=== PATIENT | female | born 1970 | race Caucasian/White ===

== ENCOUNTER → 2016-06-17 | Outpatient (CLI) | payer BC ==
--- NOTE | 2016-06-17 16:26 | MAMMOGRAPHY REPORT ---
BILATERAL DIGITAL SCREENING MAMMOGRAM TOMOSYNTHESIS WITH CAD: 06/17/2016 CLINICAL HISTORY: Routine screening. Patient has no complaints. TECHNIQUE: Breast tomosynthesis in addition to standard 2D mammography was performed. Current study was also evaluated with a Computer Aided Detection (CAD) system. COMPARISON: Comparison is made to exams dated: 01/09/2015 mammogram, 02/28/2011 mammogram, and 01/31/20 13 mammogram - [facility]. BREAST COMPOSITION: The tissue of both breasts is extremely dense, which lowers the sensitivity of mammography. FINDINGS: No suspicious masses, calcifications, or areas of architectural distortion are noted in e ither breast. There has been no significant interval change compared to prior exams. IMPRESSION: ACR BI-RADS CATEGORY 1: NEGATIVE There is no mammographic evidence of malignancy. A 1 year screening mammogram is recommended. The p atient will receive written notification of the results. Approximately 10% of breast cancers are not detected with mammography. A negative mammographic repor t should not delay biopsy if a clinically suggestive mass is present. Maria C Calderon M.D. ah/:06/17/2016 15:38:50 Imaging Manager: Karissa JARRETT,R, M, [facility] letter sent: Normal 1/2 BI-RADS Code: ACR BI-RADS Category 1: Negative
== END | disposition home or self-care (01) ==
LOC: C.MAMM 14:34
PROVIDERS: ATTEND Internal Medicine
DX: Z12.31 Encounter for screening mammogram for malignant neoplasm of breast (principal)

== ENCOUNTER → 2016-07-14 | Outpatient (CLI) | payer BC ==
[2016-07-14 14:54] LABS: URINE APPEARANCE CLEAR (CLEAR); URINE BILIRUBIN NEG (NEG); URINE COLOR DK YELLOW; URINE EPITHELIAL CELL AUTO 20-30 /lpf (0-5); URINE NITRITE POS (NEG); URINE SPECIFIC GRAVITY 1.002 (1.000-1.030); UROBILINOGEN NEG (NEG); ZZUR CULT IF INDIC CLEAN CATCH YES
[2016-07-14 14:55] LABS: MANUAL MICROSCOPIC REQUIRED? NO; REVIEW REQ? NO
== END | disposition home or self-care (01) ==
LOC: C.LAB1850 13:03
PROVIDERS: ATTEND Internal Medicine
DX: R39.9 Unspecified symptoms and signs involving the genitourinary system (principal)

== ENCOUNTER → 2017-07-12 | Outpatient (CLI) | payer BC ==
--- NOTE | 2017-07-13 15:08 | MAMMOGRAPHY REPORT ---
BILATERAL DIGITAL SCREENING MAMMOGRAM TOMOSYNTHESIS WITH CAD: 07/12/2017 CLINICAL HISTORY: Routine screening. Patient has no complaints. TECHNIQUE: Bilateral breast tomosynthesis in addition to standard 2D mammography was performed. Curr ent study was also evaluated with a Computer Aided Detection (CAD) system. COMPARISON: Comparison is made to exams dated: 06/17/2016 mammogram, 01/09/2015 mammogram, 01/30/2013 ma mmogram, and 02/28/2011 mammogram - [facility]. BREAST COMPOSITION: The tissue of both breasts is extremely dense, which lowers the sensitivity of m ammography. FINDINGS: There are possible clustered microcalcifications in the upper outer posterior left breast, for which additional spot magnification views are recommended. A 6 mm nodular asymmetry in the slig htly superior posterior right breast on the MLO view warrant additional spot compression tomosynthesi s views, exaggerated lateral CC view and possible ultrasound. Another possible grouping of microcalc ifications in the superior right breast on the MLO view needs additional spot magnification views. No other suspicious mass, architectural distortion or cluster of microcalcifications is seen bilkata lj. IMPRESSION: ACR BI-RADS CATEGORY 0: INCOMPLETE EVALUATION: NEED ADDITIONAL IMAGING EVALUATION The bilateral microcalcifications and nodular asymmetry in the right breast on the MLO view need jordon tional imaging evaluation. The patient will be called to schedule an appointment. Approximately 10% of breast cancers are not detected with mammography. A negative mammographic report should not delay biopsy if a clinically suggestive mass is present. Laura Pride M.D. ay/:07/12/2017 15:42:44 Tufter Operator: Maria Victoria JARRETT(Tyler)(Leobardo), [facility] letter sent: Addl Imaging 0 BI-RADS Code: ACR BI-RADS Category 0: Incomplete Evaluation: Need Additional Imaging Evaluation
== END | disposition home or self-care (01) ==
LOC: C.MAMM 13:22
PROVIDERS: ATTEND Internal Medicine
DX: Z12.31 Encounter for screening mammogram for malignant neoplasm of breast (principal); R92.0 Mammographic microcalcification found on diagnostic imaging of breast; N64.89 Other specified disorders of breast

== ENCOUNTER → 2017-07-26 | Outpatient (CLI) | payer BC ==
--- NOTE | 2017-07-26 15:57 | MAMMOGRAPHY REPORT ---
BILATERAL DIGITAL DIAGNOSTIC MAMMOGRAM TOMOSYNTHESIS AND TARGETED RIGHT ULTRASOUND: 07/26/2017 CLINICAL HISTORY: Callback from screening mammogram for right breast asymmetry and bilateral calcific ations. TECHNIQUE: Breast tomosynthesis in addition to standard 2D mammography was performed. Bilateral spo t magnification CC and ML views and spot compression right MLO tomosynthesis images were obtained. COMPARISON: Comparison is made to exams dated: 07/12/2017 mammogram, 06/17/2016 mammogram, 01/09/2015 m ammogram, 01/30/2013 mammogram, and 02/28/2011 mammogram - [facility]. BREAST COMPOSITION: The tissue of both breasts is extremely dense, which lowers the sensitivity of m ammography. FINDINGS: Spot compression views demonstrate a persistent 6 mm nodular asymmetry seen within the righ t superior breast, felt to be located laterally based on the tomosynthesis localizer bar. Spot magni fication views of the left breast demonstrate a 10 mm group of amorphous calcifications in the left u pper outer quadrant at approximately 2:00, with other loosely grouped similar-appearing calcification s seen within the left lateral breast at approximately 2 to 3:00. The calcifications are indeterminat e and stereotactic biopsy of the focal grouping is recommended for further evaluation. Spot magnific ation views of the right breast demonstrate regional faint amorphous benign-appearing calcifications within the right upper outer quadrant, without a focal suspicious cluster of calcifications noted. Targeted ultrasound was performed of the right upper outer quadrant in the region of the mammographic asymmetry. In the right breast at 10:00, approximately 7 cm from the nipple, there is an oval circu mscribed anechoic mass with a thin internal septation, measuring 6 x 3 x 5 mm. This corresponds with the mammographic asymmetry and is consistent with a benign cyst. IMPRESSION: ACR BI-RADS CATEGORY 4: SUSPICIOUS, TARGETED ULTRASOUND ACR BI-RADS CATEGORY 4: SUSPICIO US 1. Focal 10 mm group of amorphous calcifications within the left 2:00 breast, as well as other simil ar appearing calcifications loosely grouped within the left 2 to 3:00 breast. Although the calcifica tions may represent fibrocystic changes, findings are indeterminate and stereotactic biopsy is recomm ended for further evaluation. 2. Regional benign-appearing amorphous calcifications within the right upper outer quadrant, without suspicious cluster of calcifications noted. 3. Benign 6 mm cyst in the right breast at 10:00 on ultrasound, which corresponds with a mammographi c asymmetry. A phone call was made to the physician's office to confirm faxed results were received. The patient has been verbally notified of the results. She tentatively scheduled the biopsy before leaving the [facility]. Approximately 10% of breast cancers are not detected with mammography. A negative mammographic report should not delay biopsy if a clinically suggestive mass is present. Maria C Calderon M.D. ah/:07/26/2017 10:49:13 Senior Cyber Intelligence Analyst: Keren JARRETT(Tyler)(M), [facility] letter sent: Abnormal 4/5 BI-RADS Code: ACR BI-RADS Category 4: Suspicious Ultrasound BI-RADS: ACR BI-RADS Category 4: Suspici ous
== END | disposition home or self-care (01) ==
LOC: C.MAMM 09:06
PROVIDERS: ATTEND Internal Medicine
DX: R92.1 Mammographic calcification found on diagnostic imaging of breast (principal); N60.01 Solitary cyst of right breast

== ENCOUNTER → 2017-08-03 | Outpatient (CLI) | payer BC ==
--- NOTE | 2017-08-03 13:18 | Discharge Instructions ---
Discharge Instructions Procedure Procedure Date: Aug 03, 2017. Reason for visit: Left Calcs. Discharge Discharge Date: Aug 03, 2017. Discharge Diagnosis: status post breast biopsy Instructions Activity Recommendations: Additional Limitations (see below) Return to School/Work: no limitations Recommended Home Diet: No Limitations Provider Instructions: ACTIVITY RECOMMENDATIONS: * No lifting, pushing, pulling or exercising the affected side for three days. RETURN TO SCHOOL/WORK: * You may return to work/school after the procedure, but do not perform any strenuous activities for 24 to 48 hours. MEDICATIONS: * Tylenol (two 325 mg) every four to six hours if needed for mild pain (if not allergic to Tylenol). DIET: * Resume previous diet. SPECIAL CARE INSTRUCTIONS: * Keep biopsy site dry for 24 hours. May shower after 24 hours, but do not soak (bathe) incision. * May remove Tegaderm (plastic patch) tomorrow AFTER showering. * Leave the steri-strips on for one week. Allow the steri-strips to fall off by themselves. If not off after one week, you may remove them. You may place a Bandaid crosswise over the strips, if desired. * Apply ice 10 minutes on and 10 minutes off as needed. * Wear a bra at bedtime to sleep more comfortably for 2-3 days. * Your referring physician should have the results after approximately 5 to 7 business days. * Call for unusual bleeding, fever, drainage, etc or if you have any questions call during normal business hours or after hours call Dr Calderon, . FOLLOW UP VISIT: Follow-up with Referring Physician as scheduled. Jayme Giang Recommendations: Call your doctor if: * Temperature above 101 degrees * Pain not relieved by pain medicine ordered * There is increased drainage or redness from any incision * You have any unanswered questions or concerns. Your Doctors Instructions noted above were prepared by provider Maria C Calderon. Patient Signature Section: Patient Instructions Signature Page Jesenia Doe Patient (or Guardian) Signature/Date: I have read and understand the instructions given to me by my caregivers. Caregiver/RN/Doctor Signature/Date: The above-named patient and/or guardian has received patient instructions on this date. + Original Patient Signature Page (only) stays with chart. Please make copy for patient.
--- NOTE | 2017-08-03 15:04 | MAMMOGRAPHY REPORT ---
UNILATERAL LEFT DIGITAL DIAGNOSTIC MAMMOGRAM: 08/03/2017 CLINICAL HISTORY: Status post left breast stereotactic biopsy. TECHNIQUE: Postprocedural left CC and ML views were obtained. COMPARISON: Comparison is made to exams dated: 07/26/2017 ultrasound, 07/26/2017 mammogram, 07/12/2017 mammogram, 06/17/2016 mammogram, 01/09/2015 mammogram, and 01/30/2013 mammogram - [facility]. BREAST COMPOSITION: The tissue of the left breast is extremely dense, which lowers the sensitivity o f mammography. FINDINGS: A new biopsy marker clip is seen at the site of the biopsied calcifications in the left upp er outer quadrant. No significant postbiopsy hematoma is seen. IMPRESSION: POST PROCEDURE IMAGING FOR MARKER PLACEMENT New biopsy marker clip status post left breast stereotactic biopsy. Pathology results are pending. Approximately 10% of breast cancers are not detected with mammography. A negative mammographic report should not delay biopsy if a clinically suggestive mass is present. Maria C Calderon M.D. ah/:08/03/2017 13:29:30 Product Development Manager: Waldemar JARRETT(R)(M), [facility] BI-RADS Code: Post Procedure Imaging For Marker Placement
--- NOTE | 2017-08-03 15:04 | MAMMOGRAPHY REPORT ---
STEREOTACTIC GUIDED BIOPSY LEFT BREAST: 08/03/2017 CLINICAL HISTORY: Indeterminate calcifications in the left upper outer quadrant. PATIENT CONSENT: The procedure, risks, benefits, and alternatives of stereotactic biopsy with clip pl acement were discussed with the patient, and verbal and written consent was obtained. A timeout was performed immediately prior to the procedure. PROCEDURE DESCRIPTION: With stereotactic guidance, aseptic technique, and lidocaine as a local anesth etic (1% lidocaine to anesthetize the skin and 1% lidocaine with epinephrine to anesthetize the deepe r tissues), the calcifications of concern in the left upper outer quadrant were sampled multiple time s with a 9-gauge vacuum-assisted biopsy needle ([employer]). The path of approach was lateral. The specimen radiograph demonstrates calcifications to be present in the samples. A metallic marker cli p was placed at the biopsy site. This was confirmed on postprocedure mammograms. Direct pressure wa s applied at the biopsy site and hemostasis was readily achieved. The patient tolerated the procedur e without complication. She was given wound care instructions. COMPARISON: Comparison is made to exams dated: 07/26/2017 ultrasound, 07/26/2017 mammogram, 07/12/2017 mammogram, 06/17/2016 mammogram, and 01/09/2015 mammogram - [facility]. IMPRESSION: STEREOTACTIC GUIDED BIOPSY Stereotactic biopsy of indeterminate calcifications in the left upper outer quadrant, with clip place ment. The patient will receive pathology results from her referring provider. Maria C Calderon M.D. ah/:08/03/2017 13:19:26 Attending Technologist: Keren Moreira RT(R)(M), [facility] Mail Room Clerk: Waldemar Pope RT(R)(M), [facility]
== END | disposition home or self-care (01) ==
LOC: C.MAMM 12:42
PROVIDERS: ATTEND Internal Medicine
DX: R92.0 Mammographic microcalcification found on diagnostic imaging of breast (principal)

== ENCOUNTER 2025-04-09 08:51 | Inpatient (IN) ==
--- NOTE | 2025-04-09 09:19 | Emergency Department Note ---
Impression & Plan Lower back pain, L4-L5 disc bulge ED Provider Note Diagnosis: Low back pain, L5 disc protrusion Disposition: Admission CHIEF COMPLAINT: Back pain HPI: Patient is a 54-year-old female presenting with complaint of lower back pain that radiates down the left leg. Patient's had issues with this since September of this year and is progressively getting worse. Patient has been using chiropractors massage therapist orthopedics and nothing has been helping. Patient states over the past couple days time she cannot bear weight on her left leg and hops around to get around at home. Patient states she feels numbness and pain down the lateral aspect of her left leg. Patient denies any bowel or bladder symptoms. Patient states she is scheduled for an MRI next week as well as pain management next month. No reported new trauma since last CT scan in our system [address] of lumbar spine showed bulging disc at multiple levels. PAST MEDICAL HISTORY: See Below PAST SURGICAL HISTORY: See Below SOCIAL HISTORY: See Below HOME MEDICATIONS: See Below ALLERGIES: See Below VITALS: See Below PHYSICAL EXAMINATION: GENERAL: Well appearing, well nourished, NAD, non-toxic. EYE EXAM: Normal conjunctiva. OROPHARYNX: Moist mucus membranes. Grossly normal dentition. NECK: Supple, LUNGS: Clear to auscultation. Normal chest wall mechanics. HEART: NSR ABDOMEN: Abdomen soft, non-tender, normo-active bowel sounds, no masses, no rebound or guarding BACK: Tenderness lumbar spine SKIN: No rashes and no bruising. UPPER EXTREMITIES: Upper extremities are grossly normal LOWER EXTREMITIES: 2+ posterior tibialis pulses bilaterally, sensation present bilateral lower extremities, muscle strength at ankle joint intact., NEURO EXAM: A&O x3,, normal speech, moves all 4 extremities PSYCH: Cooperative MEDICAL DECISION MAKING: History obtained from: Patient ER Course: Patient is a 54-year-old female presenting with worsening lower back pain that radiates down the left leg. Patient states that this started within incident that occurred in September of this previous year. Patient has been using multiple modalities as an outpatient to try to help with the symptoms as much as physical therapy massage therapy chiropractor and steroid courses as well as different medications. Patient states over the past 2 to 3 days her symptoms have worsened where she has to hop to walk along at home and she has significant pain whenever she first wakes up down the lateral aspect of her left leg. Patient denies any urinary retention or incontinence of urine or stool. Patient on my exam today has 2+ dorsal pedis pulse and intact muscle strength of the left ankle joint as well as sensation. Patient does have numbness down the leg and significant pain. Patient had an outpatient CT scan performed at approximately 1 month ago which showed disc protrusions of the lumbar spine. Due to the patient's significant symptoms MRI was ordered from the emergency room. MRI shows significant L5 disc protrusion. Patient required multiple doses of narcotic pain medication during ER course. On 1 dose of the pain medication the patient required nasal cannula oxygen support because it lowered her oxygen saturation briefly. Patient's case was discussed with on-call orthopedic spine surgeon who reviewed her MRIs and agrees to admit her to the hospital under his service for further treatment and evaluation. Labs (independently interpreted) are significant for: No electrolyte abnormalities Medications given: Dilaudid x 3 Consultants: Dr. Restrepo of orthopedic spine, discussed patient's case and he reviewed the patient's MRI today. Will admit the patient to his service for further treatment and evaluation. Triage Nursing notes reviewed and agree them. Vital Signs: reviewed and remarkable for: no significant abnormalities Past Med/Surg History Problem List (Updated 04/09/25 @ 16:19 by Everardo Maradiaga DO) L4-L5 disc bulge (Acute) Lower back pain (Acute) Lumbar disc herniation with radiculopathy Lumbosacral radiculopathy at L4 Lumbosacral radiculopathy at L3 Low back pain Contact dermatitis Pruritic erythematous rash Pruritic condition Postmenopausal Non-smoker (Acute) Hyperhidrosis (Acute) History of cervical dysplasia (Acute) Anxiety disorder (Chronic) Allergic rhinitis (Chronic) Abnormal finding on mammography (Acute) Health care maintenance Left knee pain Gait difficulty Impaired weight bearing Knee instability Acute meniscal tear of left knee Skin abrasion Encounter for pre-operative examination Encounter for screening for lipid disorder Osteoarthritis (Chronic) Vitamin D deficiency (Chronic) Abnormal iron saturation Medical History UTI (urinary tract infection) Ankle pain Muscle strain of chest wall Surgical History H/O knee surgery H/O hand surgery H/O oral surgery Hx of LASIK History of gynecologic surgery H/O breast biopsy Family History Father age 48 after surgery for tumor on caroid- suffered stroke and . Grandfather (Maternal) Stroke Other Benign tumor of glomus jugulare Denies family history of Pancreatic cancer Ovarian cancer Prostate cancer Breast cancer Colorectal cancer Uterine cancer Social History Smoking Status: Never smoker Second Hand Exposure: No; Do You Dip or Chew Tobacco: No; Hx Alcohol Use: Yes Alcohol type: wine Hx Substance Use: No Preferred Language: Sami marital status: Current Living Situation: Spouse current occupational status: employed Feels Safe at Home: Yes Safety Concerns: Feels Safe At This Time Childhood Exposure to Second-Hand Smoke: Yes Dental Care, Regularly: Yes Physical Activity Frequency: 5-6 Times per Week Seatbelt Use: always Sunscreen Use: Yes Assistive Devices: Cane, Glasses and Hospital Bed Allergies Allergies Allergy/AdvReac Type Severity Reaction Status Date / Time povidone-iodine AdvReac Mild Hives Verified 03/31/25 15:03 [From Betadine] soap [From Betadine] AdvReac Mild Hives Verified 03/31/25 15:03 Home Meds Home Medications Medication Instructions Recorded Confirmed fexofenadine 180 mg tablet 180 mg PO DAILY 07/02/19 03/31/25 (Orquidea Allergy) multivitamin 1 cap PO DAILY 07/02/19 03/31/25 Previous Rx's Medication Instructions Recorded cholecalciferol (vitamin D3) 125 125 mcg PO DAILY #30 caps 04/09/20 mcg (5,000 unit) capsule mecobalamin (vitamin B12) 1,000 2,000 mcg (2 x 1,000 mcg) PO DAILY 04/09/20 mcg chewable tablet #30 tabs metaxalone 800 mg tablet 800 mg PO TID PRN muscle pain #30 03/25/25 tabs diazepam 5 mg tablet 5 mg PO TID PRN muscle spasm #30 03/31/25 tabs hydrocodone 7.5 mg-acetaminophen 1 tab PO Q6H PRN pain #30 tabs 03/31/25 325 mg tablet prednisone 20 mg tablet See Rx Instructions .Route 03/31/25 .COMPLEX #20 tabs Results & Data (ED) Vital Signs Vital Signs - 24 hr 04/09/25 08:54 04/09/25 09:46 04/09/25 11:44 Temperature 36.6 C Temperature Source Temporal Artery Scan Pulse Rate 104 H 99 H Pulse Rate [Apical] 111 H Pulse Rhythm [Apical] Pulse Strength [Apical] Respiratory Rate 18 22 Respiratory Effort / Characteristics Non-Labored Spontaneous Non-Labored Respiratory Depth Normal Normal Respiratory Pattern Regular Blood Pressure 164/96 H Blood Pressure [Left Arm] 145/90 H Blood Pressure Mean 118 Blood Pressure Mean [Left Arm] 108 Pulse Oximetry 97 98 Oxygen Delivery Method Room Air Room Air Oxygen Flow Rate Sepsis Recent Fever Within 48 Hours No Sepsis New/Unexplained Change in Mental Status N/A Sepsis Action Taken by Nursing No Action Required Oxygen Flow Rate - Titration Pulse Oximetry Post Tiitration 04/09/25 11:58 04/09/25 12:00 04/09/25 14:00 Temperature Temperature Source Pulse Rate Pulse Rate [Apical] 101 H 110 H Pulse Rhythm [Apical] Regular Pulse Strength [Apical] Normal Respiratory Rate 22 18 Respiratory Effort / Characteristics Non-Labored Spontaneous Respiratory Depth Normal Respiratory Pattern Blood Pressure Blood Pressure [Left Arm] 141/89 H 156/105 H Blood Pressure Mean Blood Pressure Mean [Left Arm] 106 122 Pulse Oximetry 83 L 98 98 Oxygen Delivery Method Room Air Nasal Cannula Room Air Oxygen Flow Rate 0 3 Sepsis Recent Fever Within 48 Hours Sepsis New/Unexplained Change in Mental Status Sepsis Action Taken by Nursing Oxygen Flow Rate - Titration 3 Pulse Oximetry Post Tiitration 98 Laboratory Data 04/09/25 09:25 04/09/25 09:25 Lab Results 04/09/25 Range/Units 09: WBC 7.73 (4.8-10.8) K/ul RBC 4.51 (4.20-5.40) M/uL Hgb 15.0 (12.0-16.0) g/dL Hct 42.1 (37.0-47.0) % MCV 93.3 (80.0-100.0) fL MCH 33.3 (25.0-34.0) pg MCHC 35.6 (32.0-36.0) g/dL RDW Std Deviation 43.7 (36.4-46.3) fL RDW Coeff of Amy 12.7 (11.5-14.5) % Plt Count 442 H (130-400) K/uL MPV 9.3 L (9.4-12.4) fL Immature Gran % (Auto) 0.8 % Neut % (Auto) 48.1 % Lymph % (Auto) 36.6 % [place] % (Auto) 12.9 % Eos % (Auto) 0.8 % Baso % (Auto) 0.8 % Neut # (Auto) 3.72 (1.40-6.50) K/uL Lymph # (Auto) 2.83 (1.20-3.40) K/uL [place] # (Auto) 1.00 H (0.11-0.59) K/uL Eos # (Auto) 0.06 (0.00-0.50) K/uL Baso # (Auto) 0.06 (0.00-0.20) K/uL Immature Gran # (Auto) 0.06 (0.01-0.20) K/uL Sodium 140 (136-145) mmol/L Potassium 3.6 (3.5-5.1) mmol/L Chloride 104 (98-107) mmol/L Carbon Dioxide 29 (21-32) mmol/L Anion Gap 7 (3-11) BUN 12 (6-23) mg/dl Creatinine 0.74 (0.6-1.2) mg/dl Est Cr Clr Drug Dosing Not Reportable eGFR 96.09 BUN/Creatinine Ratio 16.2 (10-20) Glucose 90 (70-99(Fasting)) mg/dl Calcium 9.9 (8.6-10.3) mg/dl Administered Medications Discontinued Medications Hydromorphone HCl (Hydromorphone Inj 1 Mg/Ml Syringe) 1 mg IV NOW STA Stop: 04/09/25 09:14 Last Admin: 04/09/25 09:24 Dose: 1 mg Documented By: TDM Hydromorphone HCl (Hydromorphone Inj 1 Mg/Ml Syringe) 1 mg IV NOW STA Stop: 04/09/25 11:49 Last Admin: 04/09/25 11:53 Dose: 1 mg Documented By: TDM Hydromorphone HCl (Hydromorphone Inj 0.5 Mg/0.5 Ml Syr) 0.5 mg IV NOW STA Stop: 04/09/25 13:50 Last Admin: 04/09/25 14:07 Dose: 0.5 mg Documented By: MR Imaging Data Radiologist's Impression: Lumbar Spine MRI 04/09/25 09:13 MR lumbar spine wo con CLINICAL HISTORY: 54 years-old Female with lumbar pain w/ numbness in left leg, trouble walki. Subacute low back pain for several months with left lower extremity radicular symptoms COMPARISON: CT lumbar spine 03/17/2025 TECHNIQUE: Multiplanar, multi sequence MRI of the lumbar spine was performed without intravenous contrast. FINDINGS: 26 degrees levoscoliosis measured from L1-L5. The vertebral body heights are normal. There is no T1 fracture line or marrow replacement process. Mild Modic- type 1 degeneration at L4-L5. The conus terminates at T12-L1. The visualized spinal cord and cauda equina are normal. There is no paraspinal edema, mass, or prevertebral fluid collection. Distended urinary bladder. T12-L1: No central canal or neural foraminal stenosis. L1-L2: No central canal or neural foraminal stenosis. L2-L3: Mild intervertebral disc space narrowing. Spondylotic spurring with small circumferential disc bulge, eccentric to the left far lateral distribution. Mild facet arthrosis with trace facet effusions. No central canal or neural foraminal stenosis. L3-L4: Mild intervertebral disc space narrowing with degenerative related 3 mm anterolisthesis. Spondylitic spurring with small circumferential annular disc bulge and posterior disc uncovering. Moderate facet arthrosis with facet effusions. Moderate central canal stenosis, AP dimension of the thecal sac measuring 6 mm. The neural foramen are patent. L4-L5: Moderate facet arthrosis. Mild to moderate intervertebral disc space narrowing with spondylitic spurring and a circumferential annular disc bulging. Degenerative related 4 mm anterolisthesis. Posterior annular fissure with large central disc protrusion measuring 1.7 x 0.8 cm, image 21 series 5. This causes severe central canal stenosis with AP dimension of the thecal sac measuring 2 mm. Severe narrowing of the lateral recesses. Minimal bilateral neural foraminal stenosis. L5-S1: Mild facet arthrosis. No central canal or neural foraminal stenosis. IMPRESSION: 1. Large central disc protrusion at L4-L5 causes severe central canal stenosis with severe narrowing of the lateral recesses. 2. No acute fracture, subluxation or significant bone marrow edema. 3. Additional discogenic degeneration with spondylotic spurring and facet arthrosis as above with resultant central canal and neural foraminal narrowing. ACT 112: Negative or not required by law. The above report was generated using voice recognition software. It may contain grammatical, syntax or spelling errors. Electronically signed by: William Acosta M.D. 04/09/2025 12:25 PM Discharge Plan Visit Data Chief Complaint: Hip Pain Stated Complaint: L HIP AND LEG PAIN ED Provider: Everardo Maradiaga Discharge Problem: Lower back pain, L4-L5 disc bulge Patient Disposition: Admitted As Inpatient Condition: Fair Discharge Instructions Interventions: ED Discharge Assessment Last Done: 04/09/25 15:01
[2025-04-09] MEDS: HYDROmorphone INJ 1 MG/ML SYRINGE IV STA ×2 (09:24→11:53)
[2025-04-09 09:40] LABS: Hematocrit (blood only) 42.1 % (37.0-47.0); Hemoglobin 15.0 g/dL (12.0-16.0); Immature Granulocytes # (auto) 0.06 K/uL (0.01-0.20); Immature Granulocytes % (auto) 0.8 %; Mean Corpuscular Hemoglobin 33.3 pg (25.0-34.0); Mean Corpuscular Volume 93.3 fL (80.0-100.0); Platelet Count 442 K/uL (130-400); RDW Standard Deviation 43.7 fL (36.4-46.3); Red Blood Count 4.51 M/uL (4.20-5.40); White Blood Count 7.73 K/ul (4.8-10.8)
[2025-04-09 09:55] LABS: Anion Gap 7 (3-11); Blood Urea Nitrogen 12 mg/dl (6-23); Calcium 9.9 mg/dl (8.6-10.3); Carbon Dioxide 29 mmol/L (21-32); Chloride 104 mmol/L (98-107); Glucose 90 mg/dl (70-99(Fasting)); Potassium 3.6 mmol/L (3.5-5.1); Sodium 140 mmol/L (136-145)
--- NOTE | 2025-04-09 12:28 | Magnetic Resonance Report ---
MR lumbar spine wo con CLINICAL HISTORY: 54 years-old Female with lumbar pain w/ numbness in left leg, trouble walki. Subac [place] low back pain for several months with left lower extremity radicular symptoms COMPARISON: CT lumbar spine 03/17/2025 TECHNIQUE: Multiplanar, multi sequence MRI of the lumbar spine was performed without intravenous cont rast. FINDINGS: 26 degrees levoscoliosis measured from L1-L5. The vertebral body heights are normal. There is no T1 fracture line or marrow replacement process. Mild Modic-type 1 degeneration at L4-L5. The conus termi nates at T12-L1. The visualized spinal cord and cauda equina are normal. There is no paraspinal janine ma, mass, or prevertebral fluid collection. Distended urinary bladder. T12-L1: No central canal or neural foraminal stenosis. L1-L2: No central canal or neural foraminal stenosis. L2-L3: Mild intervertebral disc space narrowing. Spondylotic spurring with small circumferential dis c bulge, eccentric to the left far lateral distribution. Mild facet arthrosis with trace facet effusi ons. No central canal or neural foraminal stenosis. L3-L4: Mild intervertebral disc space narrowing with degenerative related 3 mm anterolisthesis. Spon dylitic spurring with small circumferential annular disc bulge and posterior disc uncovering. Moderat e facet arthrosis with facet effusions. Moderate central canal stenosis, AP dimension of the thecal s ac measuring 6 mm. The neural foramen are patent. L4-L5: Moderate facet arthrosis. Mild to moderate intervertebral disc space narrowing with spondylit ic spurring and a circumferential annular disc bulging. Degenerative related 4 mm anterolisthesis. Po sterior annular fissure with large central disc protrusion measuring 1.7 x 0.8 cm, image 21 series 5. This causes severe central canal stenosis with AP dimension of the thecal sac measuring 2 mm. Severe narrowing of the lateral recesses. Minimal bilateral neural foraminal stenosis. L5-S1: Mild facet arthrosis. No central canal or neural foraminal stenosis. IMPRESSION: 1. Large central disc protrusion at L4-L5 causes severe central canal stenosis with severe narrowing of the lateral recesses. 2. No acute fracture, subluxation or significant bone marrow edema. 3. Additional discogenic degeneration with spondylotic spurring and facet arthrosis as above with res ultant central canal and neural foraminal narrowing. ACT 112: Negative or not required by law. The above report was generated using voice recognition software. It may contain grammatical, syntax o r spelling errors. Electronically signed by: William Acosta M.D. 04/09/2025 12:25 PM
[2025-04-09] MEDS: HYDROmorphone INJ 0.5 MG/0.5 ML SYR IV STA (14:07)
--- NOTE | 2025-04-09 15:10 | History & Physical Report ---
Date of Service April 09, 2025 Assessment & Plan (1) Lumbar disc herniation with radiculopathy: Plan: Patient has both an MRI and a CAT scan available for review. MRI from today demonstrates massive central disc herniation L4-L5 with severe spinal stenosis a nd neural encroachment. CAT scan confirms evidence of marked spondylosis at the L4-L5 level with a listhesis to the left. There is marked facet hypertrophy and osteoarthritis. At this point we had a lengthy discussion regarding her clinical presentation urinary changes and neurologic deficit. She would like proceed with surgery. They would require a lumbar decompression and fusion L4- L5. This would allow me to safely and adequately decompress the canal address the facet hypertrophy and listhesis. Risk benefits pros cons and alternatives were all in detail. Risk include but not limited to anesthesia blindness stroke paralysis nerve damage blood loss requiring transfusion infection requiring reoperation benefits to be marked improvement of her radiculopathy pulmonary function and ambulation. This time patient will be admitted for pain control made n.p.o. after midnight and plan for surgery first thing in the a.m. History of Present Illness Chief Complaint: Severe back and leg pain with inability ambulate Primary Care Provider: Elizabeth Franklin MD This is a 54-year-old female that presents emergency room with a marked decline in status over the past 2 weeks. She has been unable to ambulate. She has severe left greater than right leg pain. She is noting difficulty with urination and intermittent perineal numbness. She had been seen in our office several weeks ago had initiated a course of physical therapy and completed several sessions. This included healthcare social worker. Unfortunately she continued to decline and now presents for the second time to the emergency room with pain at the lumbosacral junction predominantly left buttock posterolateral thigh into the foot. She notes breakaway weakness prickly affecting left lower extremity. Allergies Allergy/AdvReac Type Severity Reaction Status Date / Time povidone-iodine AdvReac Mild Hives Verified 03/31/25 15:03 [From Betadine] soap [From Betadine] AdvReac Mild Hives Verified 03/31/25 15:03 Home Medications Medication Instructions Recorded Confirmed Type fexofenadine 180 mg tablet 180 mg PO DAILY 07/02/19 03/31/25 History (Orquidea Allergy) multivitamin 1 cap PO DAILY 07/02/19 03/31/25 History cholecalciferol (vitamin D3) 125 125 mcg PO DAILY #30 caps 04/09/20 03/31/25 Rx mcg (5,000 unit) capsule mecobalamin (vitamin B12) 1,000 2,000 mcg (2 x 1,000 mcg) PO DAILY 04/09/20 03/31/25 Rx mcg chewable tablet #30 tabs metaxalone 800 mg tablet 800 mg PO TID PRN muscle pain #30 03/25/25 03/31/25 Rx tabs diazepam 5 mg tablet 5 mg PO TID PRN muscle spasm #30 03/31/25 03/31/25 Rx tabs hydrocodone 7.5 mg-acetaminophen 1 tab PO Q6H PRN pain #30 tabs 03/31/25 03/31/25 Rx 325 mg tablet prednisone 20 mg tablet See Rx Instructions .Route 03/31/25 03/31/25 Rx .COMPLEX #20 tabs Past Med/Surg History Problem List (Updated 04/09/25 @ 15:07 by Margarito Restrepo DO) Lumbar disc herniation with radiculopathy Lumbosacral radiculopathy at L4 Lumbosacral radiculopathy at L3 Low back pain Contact dermatitis Pruritic erythematous rash Pruritic condition Postmenopausal Non-smoker (Acute) Hyperhidrosis (Acute) History of cervical dysplasia (Acute) Anxiety disorder (Chronic) Allergic rhinitis (Chronic) Abnormal finding on mammography (Acute) Health care maintenance Left knee pain Gait difficulty Impaired weight bearing Knee instability Acute meniscal tear of left knee Skin abrasion Encounter for pre-operative examination Encounter for screening for lipid disorder Osteoarthritis (Chronic) Vitamin D deficiency (Chronic) Abnormal iron saturation Medical History UTI (urinary tract infection) Ankle pain Muscle strain of chest wall Surgical History H/O knee surgery H/O hand surgery H/O oral surgery Hx of LASIK History of gynecologic surgery H/O breast biopsy Family History Father age 48 after surgery for tumor on caroid- suffered stroke and . Grandfather (Maternal) Stroke Other Benign tumor of glomus jugulare Denies family history of Pancreatic cancer Ovarian cancer Prostate cancer Breast cancer Colorectal cancer Uterine cancer Social History Smoking Status: Never smoker Second Hand Exposure: No; Do You Dip or Chew Tobacco: No; Hx Alcohol Use: Yes (at dinner) Alcohol type: wine Hx Substance Use: No Preferred Language: Spanish marital status: Current Living Situation: Family current occupational status: employed Feels Safe at Home: Yes Childhood Exposure to Second-Hand Smoke: Yes Dental Care, Regularly: Yes Physical Activity Frequency: 5-6 Times per Week Seatbelt Use: always Sunscreen Use: Yes Physical Exam Physical Exam: On exam patient is in obvious severe distress. She can only hold herself in a position. She exhibits no abnormal skin markings lumbar spine. She has severe tension signs with straight leg raising. There is breakaway weakness to the left quadricep and left dorsiflexion. Extensor houses longus plantarflexion appears to be a 5/5. There is sensory deficits on the left but on the right. Deep and reflexes absent. Results & Data Results & Data Vital Signs (Past 12 Hours) Vital Signs Temp Pulse Pulse Resp BP BP Pulse Ox 04/09/25 14:00 110 H 18 156/105 H 98 04/09/25 12:00 101 H 22 141/89 H 98 04/09/25 11:58 83 L 04/09/25 11:44 111 H 22 145/90 H 98 04/09/25 09:46 99 H 04/09/25 08:54 36.6 C 104 H 18 164/96 H 97 O2 Del Method O2 Flow Rate 04/09/25 14:00 Room Air 04/09/25 12:00 Nasal Cannula 3 04/09/25 11:58 Room Air 0 04/09/25 11:44 Room Air 04/09/25 09:46 04/09/25 08:54 Room Air Code Status & VTE Plan VTE Prophylaxis Plan VTE Prophylaxis will be ordered: Yes
[2025-04-09] MEDS ORDERED: ACETAMINOPHEN 1,000 MG/100 ML VIAL IV PRN (15:57)
[2025-04-09] MEDS ORDERED: NALOXONE HCL 0.4 MG/1 ML VIAL/CARP IV PRN (15:57)
[2025-04-09] MEDS ORDERED: PROMETHAZINE 12.5 MG/50.5 ML BAG IV PRN (15:57)
[2025-04-09] MEDS ORDERED: ONDANSETRON 4 MG OD TAB PO PRN (15:57)
[2025-04-09] MEDS ORDERED: METOCLOPRAMIDE HCL INJ 5 MG/ML 2 ML VIAL IV PRN (15:57)
[2025-04-09] MEDS ORDERED: LORazepam Inj 0.5 MG in SYRINGE 0.25 ML IV PRN (15:57)
[2025-04-09] MEDS ORDERED: ONDANSETRON INJ 2 MG/ML 2 ML VIAL IV PRN (15:57)
[2025-04-09] MEDS: HYDROmorphone INJ 1 MG/ML SYRINGE IV PRN (17:12)
[2025-04-09] MEDS: LACTATED RINGER'S 1,000 ML IV SCH (17:13)
[2025-04-09] MEDS: LORazepam 0.5 MG TAB PO PRN (21:00)
--- NOTE | 2025-04-10 06:55 | Anesthesiology Consultation ---
Date of Service April 10, 2025 Assessment & Plan (1) Encounter for pre-operative examination: Chart Review Chart Review: Acceptable Risk for Surgery and Patient NOT seen in Pre Admission Testing Consults Requested none History Surgery Operation Date: 04/10/25 07:45 Proposed Procedures p L4-L5 Decompression and Fusion - Margarito Restrepo DO Height/Weight Height: 5 ft 8 in Weight: 64.4 kg Allergies Allergy/AdvReac Type Severity Reaction Status Date / Time povidone-iodine AdvReac Mild Hives Verified 03/31/25 15:03 [From Betadine] soap [From Betadine] AdvReac Mild Hives Verified 03/31/25 15:03 Medications Home Medications Medication Instructions Recorded Confirmed Last Taken fexofenadine 180 mg tablet 180 mg PO DAILY 07/02/19 03/31/25 Unknown (Orquidea Allergy) multivitamin 1 cap PO DAILY 07/02/19 03/31/25 Unknown cholecalciferol (vitamin D3) 125 125 mcg PO DAILY #30 caps 04/09/20 03/31/25 Unknown mcg (5,000 unit) capsule mecobalamin (vitamin B12) 1,000 2,000 mcg (2 x 1,000 mcg) PO DAILY 04/09/20 03/31/25 Unknown mcg chewable tablet #30 tabs metaxalone 800 mg tablet 800 mg PO TID PRN muscle pain #30 03/25/25 03/31/25 Unknown tabs diazepam 5 mg tablet 5 mg PO TID PRN muscle spasm #30 03/31/25 03/31/25 Unknown tabs hydrocodone 7.5 mg-acetaminophen 1 tab PO Q6H PRN pain #30 tabs 03/31/25 03/31/25 Unknown 325 mg tablet prednisone 20 mg tablet See Rx Instructions .Route 03/31/25 03/31/25 Unknown .COMPLEX #20 tabs Active Medications Generic Name Dose Route Start Last Admin Trade Name Freq PRN Reason Stop Dose Admin Hydromorphone HCl 1 mg 04/09/25 15:57 04/10/25 05:45 Hydromorphone Inj 1 Mg/Ml Syringe IV 04/23/25 15:56 1 mg Q3H PRN Administration severe pain (scale 7-10) Lactated Ringer's 1,000 mls @ 75 mls/hr 04/09/25 15:57 04/10/25 05:46 Lr IV 04/10/25 08:00 75 mls/hr .[id number] COSTA Administration Lorazepam 0.5 mg 04/09/25 15:57 04/09/25 21:00 Lorazepam 0.5 Mg Tab PO 05/09/25 15:56 0.5 mg Q8H PRN Administration sedation/anxiety Past Medical History Medical History UTI (urinary tract infection) Ankle pain Muscle strain of chest wall Past Family History Family History Father age 48 after surgery for tumor on caroid- suffered stroke and . Grandfather (Maternal) Stroke Other Benign tumor of glomus jugulare Denies family history of Pancreatic cancer Ovarian cancer Prostate cancer Breast cancer Colorectal cancer Uterine cancer Past Surgical History Surgical History H/O knee surgery H/O hand surgery bilateral thumbs. H/O oral surgery tooth extraction Hx of LASIK bilateral History of gynecologic surgery cervical conization by cold knife age 20 [place] H/O breast biopsy Social History Smoking Status: Never smoker Do You Dip or Chew Tobacco: No Hx Alcohol Use: Yes Alcohol type: wine alcohol intake frequency: a few times a month Hx Substance Use: No Physical Exam Vital Signs Last Vital Signs Temp 97.9 F 04/10/25 06:40 Pulse 95 H 04/10/25 06:40 Resp 18 04/10/25 06:40 BP 165/113 H 04/10/25 06:40 Pulse Ox 97 04/10/25 06:40 O2 Del Method Room Air 04/10/25 06:40 O2 Flow Rate 3 04/09/25 12:00 Testing Laboratory Results 04/09/25 09:25 04/09/25 09:25
[2025-04-10] MEDS ORDERED: ONDANSETRON INJ 2 MG/ML 2 ML VIAL ONE ×2 (06:59→09:11)
[2025-04-10] MEDS ORDERED: PROPOFOL IV EMULSION 10 MG/ML 20 ML VIAL IV ONE (06:59)
[2025-04-10] MEDS ORDERED: DEXAMETHASONE SOD INJ 4 MG/ML VIAL ONE (06:59)
[2025-04-10] MEDS ORDERED: MIDAZOLAM HCL 1 MG/ML 2ML VIAL ONE (06:59)
[2025-04-10] MEDS ORDERED: LIDOCAINE 2% 2 ML VIAL/AMP(20MG/ML) INFIL ONE (06:59)
[2025-04-10] MEDS ORDERED: LARYING-O-JET KIT (LTA) ONE (07:00)
[2025-04-10] MEDS ORDERED: HYDROmorphone INJ 2 MG/ML SYR/VIAL ONE (07:00)
[2025-04-10] MEDS ORDERED: ROCURONIUM BROMIDE 10 MG/ML 5 ML VIAL IV ONE ×2 (07:00→08:12)
[2025-04-10] MEDS ORDERED: ONDANSETRON INJ 2 MG/ML 2 ML VIAL IV PRN ×2 (07:37→10:51)
[2025-04-10] MEDS ORDERED: ATROPINE SULFATE 0.1 MG/ML 10ML SYR IV PRN (07:37)
--- NOTE | 2025-04-10 07:45 | History & Physical Bridge Note ---
Date of Service April 10, 2025 History & Physical Bridge Note I have examined the patient, reviewed the History & Physical and in the interval since the performance of the History & Physical I have noted the following changes of clinical significance: no changes noted Patient has continued issues with urinary control, severe back and leg pain and inability to ambulate. In order to prevent permanent functional deficits recommending emergent decompression fusion L4-L5.
[2025-04-10 07:47] LABS: Pregnancy Test, Serum Negative (Negative)
[2025-04-10] MEDS: BUPIVACAINE/EPINEPHRINE 0.25% 1:200,000 30 ML VIAL ONE (08:19)
[2025-04-10] MEDS: ceFAZolin 330 MG/ML 1 GM VIAL ONE (08:19)
[2025-04-10] MEDS ORDERED: SUGAMMADEX SODIUM 200 MG/2 ML VIAL IV ONE (08:19)
[2025-04-10] MEDS: FLOSEAL HEMOSTATIC MATRIX 10ML TOP ONE (09:15)
--- NOTE | 2025-04-10 09:31 | Operative Report ---
Post Operative Report Pre & Post Diagnosis Operation Date: 04/10/25 07:45 Pre-Op Diagnosis: #1 cauda equina syndrome #2 disc Herniation with Radiculopathy #3 lumbar spinal stenosis Post-Op Diagnosis: Same I identified the patient and participated in the time-out.: Yes Procedure Operation Date: 04/10/25 07:45 Actual Procedures #1 lumbar decompression with bilateral facetectomies and foraminotomies L3-L4 L4-5 #2 posterior spinal fusion L4-5. #3 placed posterior instrumentation L4-L5 #4 interbody fusion L4-5 and #5 placement of Spira 11 x 26 mm x 2 at L4-5 by #6 placement of Proteus combined with Koros bone graft in the posterior lateral gutters and os design and interbody space. #7 application of versa wrap of the exposed dura. Surgeon Margarito Restrepo, Harness Brusher Shakila Gusman Estimated Blood Loss 50 Findings Consistent with Post-Op Diagnosis Specimens None Indications This is a 54-year-old female who presents to the emergency room yesterday afternoon with severe back and leg pain and changes in urinary function. This been progressive over several days the point of coming to the emergency room. She is subsequently admitted and is here for urgent decompression. Description of Procedure Patient was met with identified and pharmacy obtained. Patient was then taken to the operative suite underwent patient placed in a prone position on Alexey table atop the Maverick frame. All bony promises well-padded eyes inspected to ensure no external pressure placed upon them. This point the lumbar spine was prepped and draped in normal sterile fashion. Sharp dissection with the assistance of Bovie cautery from down to and exposing the lamina transverse processes of L4-L5. From caudal and cephalad fashion complete laminectomy of L4 was performed including bilateral medial facetectomies and foraminotomies to address all bony and neural encroachment. This did include partial laminectomy of L3 with bilateral medial facetectomies to address all subarticular stenosis. I then mobilized the nerve roots medially and addressed massive amounts of disc material that migrated into the canal. After this complete pedicle screws were then placed in L4-L5 bilaterally with assistance of fluoroscopy purposes shannon placed. I then by way of a transforaminal approach on the left performed a complete discectomy of L 4 L5. Endplates guided to subcortical bleeding bone and 11 x 26 mm Spira cage tapped in position. Then proceeded to the right transforaminal region at L4-5. Again discectomy performed. Endplates plated to subcortical bleeding bone. A second 11 x 26 mm Spira cage tapped into position. Please note all cages were packed with os design bone graft. The rods were then compressed locked into final position bilaterally. The transverse processes of L4-L5 burred to subcortical bleeding bone. Proteus combined with Koros bone graft was placed in the posterior gutters. Versa wrap placed over the exposed dura. 15 round ANIBAL drain inserted. The incision was then closed with 1 Vicryl in the fascia 2-0 Vicryl subcutaneously and 4 Monocryl for final s kin closure. Steri-Strips sterile dressing placed. Patient waken taken to PACU stable condition. Please note Shakila Gusman was present for the entire procedure and failed patient positioning complex portion of the surgery and final skin closure. I attest to the content of the Intraoperative Record and any orders documented therein. Any exceptions are noted below.
[2025-04-10] MEDS ORDERED: HYDROmorphone INJ 2 MG/ML SYR/VIAL IV PRN (10:09)
--- NOTE | 2025-04-10 10:29 | Anesthesiology Progress Note ---
Date of Service April 10, 2025 Anesthesia Post Procedure Vital Signs Vital Signs: Temp Pulse Pulse Resp BP Pulse Ox O2 Del Method 04/10/25 10:20 91 H 12 152/97 H 100 Nasal Cannula 04/10/25 10:10 104 H 12 161/100 H 96 Room Air 04/10/25 10:00 106 H 20 156/104 H 100 Room Air 04/10/25 09:50 102 H 12 157/109 H 98 Room Air 04/10/25 09:40 97.2 F L 105 H 14 154/109 H 100 Room Air 04/10/25 07:21 98.2 F 94 H 20 162/104 H 95 Room Air 04/10/25 06:40 97.9 F 95 H 18 165/113 H 97 Room Air 04/09/25 23:19 98.2 F 78 16 133/76 97 Room Air 04/09/25 16:24 Room Air 04/09/25 15:47 98.1 F 90 16 172/92 H 97 Room Air 04/09/25 14:00 110 H 18 156/105 H 98 Room Air 04/09/25 12:00 101 H 22 141/89 H 98 Nasal Cannula 04/09/25 11:58 83 L Room Air 04/09/25 11:44 111 H 22 145/90 H 98 Room Air O2 Flow Rate 04/10/25 10:20 2 04/10/25 10:10 04/10/25 10:00 04/10/25 09:50 04/10/25 09:40 04/10/25 07:21 04/10/25 06:40 04/09/25 23:19 04/09/25 16:24 04/09/25 15:47 04/09/25 14:00 04/09/25 12:00 3 04/09/25 11:58 0 04/09/25 11:44 Pain Intensity Left Leg: Pain Intensity: 8 Back: Pain Intensity: 7 Transfer of Care Handoff Completed per policy Notes Mental Status: alert / awake / arousable and participated in evaluation Patient Amnestic to Procedure: Yes Nausea / Vomiting: adequately controlled Pain: adequately controlled Airway Patency, RR, SpO2: stable & adequate BP & HR: stable & adequate Hydration State: stable & adequate Anesthetic Complications: no major complications apparent and Pt Satisfied with anesthetic care
[2025-04-10] MEDS ORDERED: FAMOTIDINE 20 MG TAB PO PRN (10:51)
[2025-04-10] MEDS ORDERED: ALUMINUM/MAGNESIUM SUSP 30 ML UDC PO PRN (10:51)
[2025-04-10] MEDS ORDERED: ACETAMINOPHEN 500 MG TAB PO PRN (10:51)
[2025-04-10] MEDS ORDERED: diphenhydrAMINE Capsule 25 MG CAP PO PRN (10:51)
[2025-04-10] MEDS ORDERED: ONDANSETRON 4 MG OD TAB PO PRN (10:51)
[2025-04-10] MEDS ORDERED: LORazepam 0.5 MG TAB PO PRN (10:51)
[2025-04-10] MEDS ORDERED: PROMETHAZINE 12.5 MG/50.5 ML BAG IV PRN (10:51)
[2025-04-10] MEDS ORDERED: DO NOT ADMINISTER FLU VACCINE PRN (10:51)
[2025-04-10] MEDS ORDERED: LORazepam Inj 0.5 MG in SYRINGE 0.25 ML IV PRN (10:51)
[2025-04-10] MEDS ORDERED: NALOXONE HCL 0.4 MG/1 ML VIAL/CARP IV PRN (10:51)
[2025-04-10] MEDS ORDERED: DO NOT ADMINISTER PNEUMOCOCCAL VACCINE PRN (10:51)
[2025-04-10] MEDS ORDERED: METOCLOPRAMIDE HCL INJ 5 MG/ML 2 ML VIAL IV PRN (10:51)
[2025-04-10] MEDS ORDERED: MAGNESIUM HYDROXIDE SUSP 30 ML UDC PO PRN (10:51)
[2025-04-10] MEDS ORDERED: SOD PHOSPHATE/SOD BIPHOSPHATE ENEMA 132 ML BTL PR PRN (10:51)
[2025-04-10] MEDS ORDERED: ACETAMINOPHEN 1,000 MG/100 ML VIAL IV PRN (10:51)
--- NOTE | 2025-04-10 11:26 | Fluoroscopy Report ---
[place] lumbar spine 2-3V CLINICAL HISTORY: L4-L5 DECOMPRESSION COMPARISON STUDY: None FLUOROSCOPY TIME: 17 seconds FLUOROSCOPY IMAGES: 2 EXPOSURE DOSE: 16 mGy FINDINGS: Fluoroscopy was provided for lower lumbar fusion. IMPRESSION: Intraoperative fluoroscopy. ACT 112: Negative or not required by law. Electronically signed by: Vic Kirby M.D. 04/10/2025 11:25 AM
[2025-04-10] MEDS: KETOROLAC 30 MG/ML VIAL IV PRN (14:41)
[2025-04-10] MEDS: ACETAMINOPHEN 500 MG TAB PO PRN (17:29)
[2025-04-10] MEDS: SODIUM CHLORIDE 0.9% 1,000 ML IV SCH (19:19)
[2025-04-10] MEDS: DOCUSATE SODIUM/SENNA 50/8.6MG TAB PO SCH (21:36)
[2025-04-11] MEDS: POLYETHYLENE (MIRALAX) 17 GM PACK PO SCH (05:33)
[2025-04-11 07:34] LABS: Anion Gap 6.0 (3-11); Blood Urea Nitrogen 12.0 mg/dl (6-23); Calcium 8.7 mg/dl (8.6-10.3); Carbon Dioxide 28.0 mmol/L (21-32); Chloride 105.0 mmol/L (98-107); Creatinine Clr Calc Pharmacy 82.1 ml/min; Glucose 96.0 mg/dl (70-99(Fasting)); Potassium 3.2 mmol/L (3.5-5.1); Sodium 139.0 mmol/L (136-145)
[2025-04-11 07:58] LABS: Hematocrit (blood only) 34.9 % (37.0-47.0); Hemoglobin 12.0 g/dL (12.0-16.0); Immature Granulocytes # (auto) 0.05 K/uL (0.01-0.20); Immature Granulocytes % (auto) 0.5 %; Mean Corpuscular Hemoglobin 33.5 pg (25.0-34.0); Mean Corpuscular Volume 97.5 fL (80.0-100.0); Platelet Count 311 K/uL (130-400); RDW Standard Deviation 45.7 fL (36.4-46.3); Red Blood Count 3.58 M/uL (4.20-5.40); White Blood Count 10.05 K/ul (4.8-10.8)
[2025-04-11] MEDS: dexAMETHasone 6 MG in SYRINGE 0 ML IV SCH (08:09)
--- NOTE | 2025-04-11 10:10 | Orthopedic Progress Note ---
Date of Service April 11, 2025 Assessment & Plan (1) Lumbar disc herniation with radiculopathy: Plan: At this time continue physical therapy monitor ANIBAL operatively discharge home in the next few days. Admission and Anticipated Discharge Date Admission Date: April 09, 2025 Subjective Patient's back pain is controlled leg symptoms markedly improved Physical Exam Physical Exam: Patient is now in bed. She is comfortable. Constricted testing. Results & Data Vital Signs (Past 12 Hours) Vital Signs Temp Pulse Resp BP Pulse Ox O2 Del Method 04/11/25 07:44 37.2 C 94 H 18 137/85 95 Room Air 04/11/25 03:26 36.5 C 90 18 127/83 96 Room Air 04/10/25 22:33 36.5 C 90 18 120/78 94 Room Air
[2025-04-12 07:55] VITALS: BP 144/92; PULSE 86; RESP 18; TEMP 98.2; O2SAT 97
[2025-04-12] MEDS: HYDROmorphone INJ 0.5 MG/0.5 ML SYR IV PRN (08:12)
--- NOTE | 2025-04-12 09:36 | Discharge Summary ---
Date of Service April 12, 2025 Admission HPI Per Admitting Provider This is a 54-year-old female that presents emergency room with a marked decline in status over the past 2 weeks. She has been unable to ambulate. She has severe left greater than right leg pain. She is noting difficulty with urination and intermittent perineal numbness. She had been seen in our office several weeks ago had initiated a course of physical therapy and completed several sessions. This included nursing care partner. Unfortunately she continued to decline and now presents for the second time to the emergency room with pain at the lumbosacral junction predominantly left buttock posterolateral thigh into the foot. She notes breakaway weakness prickly affecting left lower extremity. Principal Diagnosis Lumbar disc herniation with radiculopathy Discharge Data Allergies Allergy/AdvReac Type Severity Reaction Status Date / Time povidone-iodine AdvReac Mild Hives Verified 04/10/25 07:20 [From Betadine] soap [From Betadine] AdvReac Mild Hives Verified 04/10/25 07:20 Consultations 04/09/25 14:26 ED Decision to Admit Stat Procedures Performed Operation Date: 04/10/25 07:45 Actual Procedures p L4-L5 Decompression and Fusion(Not Applicable) - Margarito Restrepo DO Ordered Studies 04/09/25 09:13 MRI Lumbar Spine [MR lumbar spine wo con] Stat 04/10/25 [place] lumbar spine 2-3V Routine Hospital Course (1) Lumbar disc herniation with radiculopathy: Patient was admitted and underwent emergent decompression fusion L4-L5. She is struggling with leg weakness and urinary retention. She tolerated the procedure well and postoperatively was up and ambulating with physical therapy. ANIBAL drain decreased appropriately. Pain controlled. Strength improved. Subsidy discharged home. Discharge orders and instructions from the chart for further review. Total Time Total Time Spent Total Time Spent (In Minutes): 20 minutes Discharge Plan Discharge Items Patient Disposition: Home - Self-Care Reason For Visit: LUMBAR DISK HERNIATION Discharge Diagnosis: Lumbar disc herniation with cauda equina syndrome Condition on Discharge: Fair Activity: As commented below Non-emergency contact: Primary Care Provider Call non-emergency contact if: you have any medication questions Follow-up/Referrals: Elizabeth Franklin MD [Primary Care Provider] - Diet: Regular Addtl Attending Provider Instructions: ACTIVITY RECOMMENDATIONS: SELF CARE INSTRUCTIONS AFTER THORACIC/LUMBAR FUSIONS 1. You may walk to your tolerance. It is good exercise for your legs and back. Expect some back and intermittent leg aches and pains. 2. You may perform "counter-top" level activities (make a sandwich, rama with a project, etc.). 3. No bending or lifting of more than 10 pounds or back twisting of any nature (roll like a log when turning in bed). 4. You may ride in a car for 20-30 minutes at a time. No driving until after your first visit with your doctor. 5. Frequent changes of position and restricting sitting to 30 minutes at a time will help limit the amount of back spasms and stiffness you may experience. 6. You may discontinue the use of ambulatory aids (cane, crutches, etc.) once your strength and confidence allow. 7. 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 Do not take a tub bath, sit in a hot tub or go into a swimming pool until after your first recheck in the office. 8. You may resume previous diet. SPECIAL CARE INSTRUCTIONS: VERY IMPORTANT TO READ AND REVIEW A. Your surgical incision has been closed with a cosmetic suture under the skin that will dissolve in about 6 weeks. In 14 days, you can use a pair of clean scissors and cut the suture that is left outside of the skin at the ends of your incision. 1. The small skin tapes can be removed 7 days after surgery if they have not fallen off by that point. 2. You may keep the wound open to air as much as possible to promote healing after post-op day number 5 unless told otherwise by your doctor. 3. If you think the wound looks like it is becoming infected (redness or worsening drainage) and/or you are experiencing fever, chill or worsening back pain and muscle spasms, contact the office so that we may marii luate you as soon as possible. B. Complications are uncommon, but please contact us if you have any signs or symptoms of: 1. wound infection (fever higher than 102.5 degrees F, redness, separation of wound, drainage, or increasing pain from the incision) 2. blood clots in legs (pain, swelling, redness and warmth in legs) 3. urinary tract infection (fever higher than 102.5 degrees F, burning upon urination or increased frequency of urination) 4. nerve problems (inability to walk on your toes or heels, numbness, loss of bowel or bladder control) 5. any other symptoms that concern you C. Please call the office at if you have any concerns or questions about your operation or recovery. D. No smoking! Smoking drastically decreases the chance of a solid fusion. E. Do not take any anti-inflammatory medications (Indocin, Advil, Motrin, As pirin, Naprosyn, etc.) as these may inhibit the chance of a solid fusion. Tylenol is okay to take for pain. MANAGING PAIN AFTER SPINAL SURGERY 1. Narcotic medication is intended for short-term use and will be provided for surgical pain. Surgical pain usually lasts for a period of 4-6 weeks. Narcotic medication includes Percocet, Vicodin, Darvocet, Tylenol #3 or Lortab. 2. Longer-term pain is more appropriately treated with non-narcotic medication such as Tylenol ES. 3. Muscle spasm is not appropriately treated with narcotics. Muscle relaxers such as Soma, Flexeril or Skelaxin can be used along with Tylenol ES. 4. Remember that we all live with some "aches and pains". This is not unusual or uncommon after an injury or as we get older. a. Back pain is expected and may include muscle spasms for 4 to 6 weeks after surgery. The pain should gradually improve. If the pain worsens for no apparent reason, please contact the office. b. Intermittent leg pain may also be experienced and should not be concerned about unless it worsens for no apparent reason. If so, please contact the office. 5. We will provide appropriate medication within the normal guidelines of their prescribed use. We will also be very cautious and aware of potential abuse and extended duration of patients' medication needs. a. Pain medications are for your comfort and to assist with sleep and rest so that the tissue can heal. They are not provided in order to return to normal activity and should not be used through the day. To do so or worsening pain at night can result from ongoing tissue damage and development of tolerance to the prescribed medicine. 6. Please allow 2-3 days to process refills. Prescriptions will not be mailed but must be picked up at the office. FOLLOW UP VISIT: Keep your scheduled follow-up appointment. Any questions, please call the office at . Pending Studies at Discharge: No Stand-Alone Forms: My [facility], Smoking Cessation Medications and DC Order Prescriptions: New tramadol 50 mg tablet 50 mg PO Q6H PRN (Reason: pain, moderate) Qty: 30 0RF oxycodone 5 mg tablet 5 mg PO Q6H PRN (Reason: pain) Qty: 30 0RF Continued mecobalamin (vitamin B12) 1,000 mcg tablet,chewable 2,000 mcg PO DAILY Qty: 30 0RF cholecalciferol (vitamin D3) 125 mcg (5,000 unit) capsule 125 mcg PO DAILY Qty: 30 0RF fexofenadine [Orquidea Allergy] 180 mg tablet 180 mg PO DAILY multivitamin Capsule 1 cap PO DAILY prednisone 20 mg tablet See Rx Instructions .Route .COMPLEX Qty: 20 0RF Rx Instructions: Three p.o. daily for 3 days then 2 p.o. daily for 3 days then 1 p.o. daily for 3 days then half a tablet p.o. daily for 4 days then DC hydrocodone-acetaminophen 7.5-325 mg tablet 1 tab PO Q6H PRN (Reason: pain) Qty: 30 0RF diazepam 5 mg tablet 5 mg PO TID PRN (Reason: muscle spasm) Qty: 30 0RF metaxalone 800 mg tablet 800 mg PO TID PRN (Reason: muscle pain) Qty: 30 1RF Discharge Orders: Discharge Order (Routine); Ordered 04/12/25 Ordered By: Margarito Restrepo Admission Data Admit Date/Time: 04/09/25 14:32 Attending Provider: Margarito Restrepo Admit Provider: Margarito Restrepo Primary Care Provider: Elizabeth Franklin V. Other Providers: Margarito Restrepo
== END 2025-04-12 13:31 | disposition home or self-care (01) | DRG 402 ==
LOC: ED 08:51 → 3W 14:32